=== PATIENT | male | born 1970 | race Caucasian/White ===

== ENCOUNTER 2017-06-13 18:31 | Emergency (ER) | payer OTHER ==
[~2017-06-13] VITALS: Ht 175.3 cm; Wt 79.5 kg
[2017-06-13 18:47] VITALS: BP 132/85; PULSE 111; RESP 20; TEMP 99; O2SAT 98
[2017-06-13] MEDS ORDERED: LORazepam 1 MG TAB PO ONE (19:00)
--- NOTE | 2017-06-13 19:06 | PD ---
HPI Chief Complaint: Medical Clearance Time Seen by Provider: 18:45 Travel History International Travel<30 days: No Contact w/Intl Traveler<30days: No Traveled to known affect area: No History of Present Illness HPI Patient is a 46 year old male who presents to ER with police officers for medical clearance. Patient reports that he was arrested today after he trespassed on private property. Reports that he has history of anxiety and reports that shortly after he was arrested, he began to develop an anxiety attack. Patient reports that he has been feeling chest spasms and feels short of breath with palpitations. Patient reports that these symptoms are similar to his anxiety reaction. Patient does not have history of ACS, AL, hypertension or hyperlipidemia, reports history for schizophrenia as well as anxiety reaction. PFSH Past Medical History Anxiety: Yes Diabetes: Yes (BORDERLINE) Patient Takes Glucophage: No Diminished Hearing: No Schizophrenia: Yes Past Surgical History Surgical History: No Previous Surgery Social History Alcohol Use: No Tobacco Use: No Substance Use: No Allergies-Medications (Allergen,Severity, Reaction): Coded Allergies: No Known Allergies (Unverified , 06/13/17) Reported Meds & Prescriptions Reported Meds & Active Scripts Active No Active Prescriptions or Reported Medications Review of Systems General / Constitutional: No: Fever Eyes: No: Visual changes HENT: No: Headaches Cardiovascular: Positive: Palpitations, No: Chest Pain or Discomfort Respiratory: Positive: Shortness of Breath Gastrointestinal: No: Abdominal Pain Genitourinary: No: Dysuria Musculoskeletal: No: Pain Skin: No Rash Neurologic: No: Weakness Psychiatric: Positive: Anxiety, No: Depression, Suicidal Ideations, Homicidal Ideation Endocrine: No: Polydipsia Hematologic/Lymphatic: No: Easy Bruising Physical Exam Narrative GENERAL: NAD SKIN: Focused skin assessment warm/dry. HEAD: Atraumatic. Normocephalic. EYES: Pupils equal and round. No scleral icterus. No injection or drainage. ENT: No nasal bleeding or discharge. Mucous membranes pink and moist. NECK: Trachea midline. No JVD. CARDIOVASCULAR: Regular rate and rhythm. No murmur appreciated. RESPIRATORY: No accessory muscle use. Clear to auscultation. Breath sounds equal bilaterally. GASTROINTESTINAL: Abdomen soft, non-tender, nondistended. Hepatic and splenic margins not palpable. MUSCULOSKELETAL: No obvious deformities. No clubbing. No cyanosis. No edema. NEUROLOGICAL: Awake and alert. No obvious cranial nerve deficits. Motor grossly within normal limits. Normal speech. PSYCHIATRIC: Anxious mood and affect; insight and judgment normal. Data Data Last Documented VS Vital Signs Date Time Temp Pulse Resp B/P (MAP) Pulse Ox O2 Delivery O2 Flow Rate FiO2 06/13/17 18:47 99.0 111 20 132/85 (101) 98 Orders Orders Electrocardiogram (06/13/17 18:54) Chest, Single Ap (06/13/17 18:54) Lorazepam (Ativan) (06/13/17 19:00) MDM Medical Decision Making Medical Screen Exam Complete: Yes Emergency Medical Condition: Yes Interpretation(s) EKG at 1903: NSR at 83bpm, qt/qtc: 341/380, no acute st or t wave changes Vital Signs Date Time Temp Pulse Resp B/P (MAP) Pulse Ox O2 Delivery O2 Flow Rate FiO2 06/13/17 18:47 99.0 111 20 132/85 (101) 98 Differential Diagnosis Differential includes anxiety reaction, ACS, arrhythmia, pneumothorax Narrative Course 46-year-old male who presents to emergency room for anxiety reaction after he was arrested today. Patient reports that his symptoms are typical of anxiety attacks which are palpitations, chest spasms and shortness of breath. Patient reports that usually Ativan or Xanax helps with his symptoms. EKG was obtained which showed normal sinus rhythm with no acute ST-T wave changes. X-ray of the chest was ordered. Patient with most likely anxiety reaction due to being arrested, a dose of ativan ordered for patient Vital Signs Date Time Temp Pulse Resp B/P (MAP) Pulse Ox O2 Delivery O2 Flow Rate FiO2 06/13/17 18:47 99.0 111 20 132/85 (101) 98 X-ray of the chest shows lungs are symmetric without evidence of mass or infiltrate or effusion. Normal 1 view chest x-ray Patient reevaluated, patient reports complete resolution of symptoms at this time. Patient with most likely anxiety reaction. Patient will be discharged to custody of police officers. Diagnosis Primary Impression: Anxiety attack Patient Instructions: General Instructions Additional Instructions: Please follow up with your primary care doctor Return to ER as needed Scripts No Active Prescriptions or Reported Meds Disposition: [address] LAW ENFORCEMNT Condition: Stable SholaZahra Mancera DO Jun 13, 2017 19:06
--- NOTE | 2017-06-13 19:21 | RADRPT ---
EXAM DATE/TIME: 06/13/2017 19:05 [facility] COMPARISON: No previous studies available for comparison. INDICATIONS : Chest pain. MEDICAL HISTORY : None. SURGICAL HISTORY : None. ENCOUNTER: Initial ACUITY: 1 day PAIN SCORE: 8/10 LOCATION: Left upper chest FINDINGS: A single view of the chest demonstrates the lungs to be symmetrically aerated without evidence of mas s, infiltrate or effusion. The cardiomediastinal contours are unremarkable. Osseous structures are intact. CONCLUSION: Normal one view chest x-ray. Jelani Lopez MD on June 13, 2017 at 19:19 Board Certified Radiologist. This report was verified electronically.
[2017-06-13 19:44] VITALS: BP 147/78
--- NOTE | 2017-06-13 20:50 | EKG ---
Date Performed: 06/13/2017 Time Performed: 19:03:50 PTAGE: 46 years EKG: Sinus rhythm NORMAL ECG NO PREVIOUS TRACING DOCTOR: Julio C Paredes Interpretating Date/Time 06/13/2017 20:48:43
== END 2017-06-13 19:54 ==
LOC: NEPD 18:31
DX: F41.0 Panic disorder [episodic paroxysmal anxiety] (principal)
CPT/HCPCS: 71010; 93005; 99284

== ENCOUNTER 2017-09-03 19:28 | Emergency (ER) | payer OTHER ==
[2017-09-03 19:31] VITALS: BP 171/98; PULSE 115; RESP 18; TEMP 98.9; O2SAT 98
--- NOTE | 2017-09-03 20:17 | RADRPT ---
EXAM DATE/TIME: 09/03/2017 20:05 [facility] COMPARISON: No previous studies available for comparison. INDICATIONS : Vomiting for three days RADIATION DOSE: 35.08 CTDIvol (mGy) MEDICAL HISTORY : Diabetes mellitus type 2. SURGICAL HISTORY : None. ENCOUNTER: Initial ACUITY: 3 days PAIN SCALE: 3/10 LOCATION: cranial TECHNIQUE: Multiple contiguous axial images were obtained of the head. Using automated exposure control and adj ustment of the mA and/or kV according to patient size, radiation dose was kept as low as reasonably a chievable to obtain optimal diagnostic quality images. DICOM format image data is available electro nically for review and comparison. FINDINGS: CEREBRUM: The ventricles are normal for age. No evidence of midline shift, mass lesion, hemorrhage or acute in farction. No extra-axial fluid collections are seen. POSTERIOR FOSSA: The cerebellum and brainstem are intact. The 4th ventricle is midline. The cerebellopontine angle i s unremarkable. EXTRACRANIAL: The visualized portion of the orbits is intact. SKULL: The calvaria is intact. No evidence of skull fracture. CONCLUSION: No acute disease. Aram Kc MD on September 03, 2017 at 20:15 Board Certified Radiologist. This report was verified electronically.
[2017-09-03] MEDS ORDERED: SODIUM CHLOR 0.9% 1000 ML INJ 1,000 ML IV ONE (20:27)
[2017-09-03] MEDS ORDERED: diphenhydrAMINE HCL 50 MG/ML VIAL IVP ONE (20:30)
[2017-09-03] MEDS ORDERED: KETOROLAC TROMETHAMINE 30 MG/ML (IVP) VIAL IVP ONE (20:30)
[2017-09-03] MEDS ORDERED: METOCLOPRAMIDE HCL 10 MG/2 ML VIAL IVP ONE (20:30)
--- NOTE | 2017-09-03 20:32 | PD ---
HPI Chief Complaint: Headache Time Seen by Provider: 20:28 Travel History International Travel<30 days: No Contact w/Intl Traveler<30days: No Traveled to known affect area: No History of Present Illness HPI Examined in the presence of a nurse. This is a 40-year-old male who presents for evaluation of headache. He reports a 12 year history of migraines diagnosed by a neurologist in [facility]. He reports that he gets several migraines a month. He reports for 3 days she's been having a particularly bad migraine and this is what prompted evaluation. He describes it as a occipital head pressure that radiates to the front of the head. Pain is constant, associated nausea as well as flashes of light/scotomas, paresthesias in the legs. Denies vomiting, chest pain or shortness of breath, cough or congestion, palpitations, fevers or chills, abdominal pain. He has tried Imitrex in the past with no relief. He has no other complaints. PFS Past Medical History Anxiety: Yes Diabetes: Yes (BORDERLINE) Diminished Hearing: No Migraines: Yes Schizophrenia: Yes Past Surgical History Surgical History: No Previous Surgery Social History Alcohol Use: No Tobacco Use: No Substance Use: No Allergies-Medications (Allergen,Severity, Reaction): Coded Allergies: No Known Allergies (Unverified Adverse Reaction, Unknown, 09/03/17) Reported Meds & Prescriptions Reported Meds & Active Scripts Active No Active Prescriptions or Reported Medications Review of Systems Except as stated in HPI: all other systems reviewed are Neg Physical Exam Narrative GENERAL: Well-developed well-nourished male in no acute distress SKIN: Warm and dry. HEAD: Atraumatic. Normocephalic. EYES: Pupils equal and round reactive to light extraocular muscles are intact. No scleral icterus. No injection or drainage. ENT: No nasal bleeding or discharge. Mucous membranes pink and moist. NECK: Trachea midline. No JVD. CARDIOVASCULAR: Regular rate and rhythm. No murmur appreciated. RESPIRATORY: No accessory muscle use. Clear to auscultation. Breath sounds equal bilaterally. GASTROINTESTINAL: Abdomen soft, non-tender, nondistended. Hepatic and splenic margins not palpable. MUSCULOSKELETAL: No obvious deformities. No clubbing. No cyanosis. No edema. Normal muscle strength in the upper and lower extremities. NEUROLOGICAL: Awake and alert. No obvious cranial nerve deficits. Motor grossly within normal limits. Normal speech. PSYCHIATRIC: Appropriate mood and affect; insight and judgment normal. Data Data Last Documented VS Vital Signs Date Time Temp Pulse Resp B/P (MAP) Pulse Ox O2 Delivery O2 Flow Rate FiO2 09/03/17 21:19 18 98 Room Air 09/03/17 19:[address] Brain W/O Iv Contrast(Rout) (09/03/17 ) Complete Blood Count With Diff (09/03/17 19:38) Basic Metabolic Panel (Bmp) (09/03/17 19:38) Coag Profile (09/03/17 19:38) Electrocardiogram (09/03/17 ) Ecg Monitoring (09/03/17 20:27) Oximetry (09/03/17 20:27) Ketorolac Inj (Toradol Inj) (09/03/17 20:30) Diphenhydramine Inj (Benadryl Inj) (09/03/17 20:30) Metoclopramide Inj (Reglan Inj) (09/03/17 20:30) Sodium Chlor 0.9% 1000 Ml Inj (Ns 1000 M (09/03/17 20:27) Ed Discharge Order (09/03/17 22:07) Labs Laboratory Tests Test 09/03/17 20:50 White Blood Count 5.8 TH/MM3 Red Blood Count 4.77 MIL/MM3 Hemoglobin 13.5 GM/DL Hematocrit 40.2 % Mean Corpuscular Volume 84.4 FL Mean Corpuscular Hemoglobin 28.3 PG Mean Corpuscular Hemoglobin Concent 33.5 % Red Cell Distribution Width 14.6 % Platelet Count 250 TH/MM3 Mean Platelet Volume 9.1 FL Neutrophils (%) (Auto) 61.5 % Lymphocytes (%) (Auto) 27.9 % Monocytes (%) (Auto) 6.3 % Eosinophils (%) (Auto) 3.6 % Basophils (%) (Auto) 0.7 % Neutrophils # (Auto) 3.6 TH/MM3 Lymphocytes # (Auto) 1.6 TH/MM3 Monocytes # (Auto) 0.4 TH/MM3 Eosinophils # (Auto) 0.2 TH/MM3 Basophils # (Auto) 0.0 TH/MM3 CBC Comment DIFF FINAL Differential Comment Prothrombin Time 9.7 SEC Prothromb Time International Ratio 1.0 RATIO Activated Partial Thromboplast Time 25.8 SEC Blood Urea Nitrogen 10 MG/DL Creatinine 0.96 MG/DL Random Glucose 83 MG/DL Calcium Level 8.7 MG/DL Sodium Level 141 MEQ/L Potassium Level 4.2 MEQ/L Chloride Level 108 MEQ/L Carbon Dioxide Level 27.3 MEQ/L Anion Gap 6 MEQ/L Estimat Glomerular Filtration Rate 84 ML/MIN MDM Medical Decision Making Medical Screen Exam Complete: Yes Emergency Medical Condition: Yes Medical Record Reviewed: Yes Differential Diagnosis Migraine with aura, tension headache, intracranial mass, pseudotumor cerebri, subarachnoid hemorrhage Narrative Course 47-year-old male with history of migraines presents with a three-day headache, visual scotomas, nausea, consistent with his previous migraines. He has no focal neurologic deficits. Lab work imaging studies ordered by the triage provider unremarkable. EKG is sinus rhythm. The patient was given a migraine cocktail with significant improvement in his symptoms. He is stable for discharge. Diagnosis Primary Impression: Migraine Additional Instructions: Follow-up with a neurologist and a primary care physician. Return for any emergent medical conditions. Med/Other Pt SpecificInfo: No Change to Meds Scripts No Active Prescriptions or Reported Meds Disposition: 01 DISCHARGE HOME Condition: Stable Brien Escobar Sep 03, 2017 20:32
[2017-09-03 21:19] VITALS: RESP 18; O2SAT 98
[2017-09-03 21:20] LABS: AUTOMATED NEUTROPHIL # 3.6 TH/MM3 (1.8-7.7); BASOPHIL % 0.7 % (0.0-2.0); EOSINOPHIL # 0.2 TH/MM3 (0-0.4); EOSINOPHIL % 3.6 % (0.0-4.0); HEMATOCRIT 40.2 % (39.0-51.0); HEMO FLAGS DIFF FINAL; LYMPH % 27.9 % (9.0-44.0); LYMPHOCYTE # 1.6 TH/MM3 (1.0-4.8); MEAN CELL VOLUME 84.4 FL (80.0-100.0); MEAN CORPUSCULAR HEMOGLOBIN 28.3 PG (27.0-34.0); MEAN CORPUSCULAR HGB CONC 33.5 % (32.0-36.0); MONO % 6.3 % (0.0-8.0); NEUT % 61.5 % (16.0-70.0); PLATELET COUNT 250 TH/MM3 (150-450); RED BLOOD COUNT 4.77 MIL/MM3 (4.50-5.90); RED CELL DISTRIBUTION WIDTH 14.6 % (11.6-17.2); WHITE BLOOD COUNT 5.8 TH/MM3 (4.0-11.0)
[2017-09-03 21:42] LABS: BICARBONATE 27.3 MEQ/L (21.0-32.0); POTASSIUM 4.2 MEQ/L (3.5-5.1)
[2017-09-03 21:46] LABS: APTT (PATIENT) 25.8 SEC (24.3-30.1); PROTHROMBIN TIME - PATIENT 9.7 SEC (9.8-11.6)
--- NOTE | 2017-09-04 16:59 | EKG ---
Date Performed: 09/03/2017 Time Performed: 20:37:57 PTAGE: 47 years EKG: Sinus rhythm Nonspecific ST-T wave changes. ABNORMAL ECG PREVIOUS TRACING : 06/13/2017 19.03 DOCTOR: Jorge Abraham Interpretating Date/Time 09/04/2017 16:58:07
== END 2017-09-03 23:21 | disposition home or self-care (01) ==
LOC: NEPD 19:28
DX: G43.909 Migraine, unspecified, not intractable, without status migrainosus (principal); R94.31 Abnormal electrocardiogram [ECG] [EKG]
CPT/HCPCS: 70450; 80048; 85025; 85610; 85730; 93005; 96374; 96375; 99285; J1200; J1885; J2765; J7030